=== PATIENT | female | born 2000 | race African-American/Black ===

== ENCOUNTER 2018-07-14 13:54 | Emergency (ER) | payer MEDICAID, OTHER ==
[~2018-07-14] VITALS: Ht 177.8 cm; Wt 83.2 kg
[2018-07-14 14:17] VITALS: BP 109/75
== END 2018-07-14 14:28 | disposition home or self-care (01) ==
LOC: ED 14:25
DX: L30.9 Dermatitis, unspecified (principal)
CPT/HCPCS: 99283